=== PATIENT | female | born 1970 | race Caucasian/White ===

== ENCOUNTER 2018-03-15 20:17 | Emergency (ER) | payer OTHER ==
[2018-03-15] MEDS ORDERED: FLUCONAZOLE 150 MG TAB PO ONE (20:44)
--- NOTE | 2018-03-15 20:51 | EDPHY ---
H & P Stated Complaint: C/O FINGER INFECTION X 1 MONTH - NO TRAUMA HAS BEEN ON 3 DIFFERNTS MEDS Time Seen by Provider: 03/15/18 20:40 HPI/ROS: CHIEF COMPLAINT: Finger infection HISTORY OF PRESENT ILLNESS: The patient is a 47-year-old female who comes to the emergency department complaining of an infection to her right ring finger. It 1st began about 3 weeks ago. She went to the urgent care 3 weeks ago and was started on Keflex. She felt like her symptoms got worse and she developed a slight rash over her chest and other hand as well. She then went back after about 5 days of Keflex and they took cultures. She states that the bacterial cultures were negative as was the herpes virus culture. They started her however on clindamycin and valacyclovir which she has taken for the last 7 days. Her symptoms continued to worsen. She has crusty yellow lesions over her proximal phalanx that is weeping and a similar lesion with small vesicles over her distal phalanx. Normal range of motion. No fever. No pain with passive range of motion. She also developed some rash to her chest that she thought was an allergic reaction but to looks more consistent with tinea corporis. She is not immunocompromised in any way. Severity: Moderate Modifying factors: None REVIEW OF SYSTEMS: Constitutional: denies: chills, fever, recent illness, recent injury EENTM: denies: blurred vision, double vision, nose congestion Respiratory: denies: cough, shortness of breath Cardiac: denies: chest pain, irregular heart rate, lightheadedness, palpitations Gastrointestinal/Abdominal: denies: abdominal pain, diarrhea, nausea, vomiting, blood streaked stools Genitourinary: denies: dysuria, frequency, hematuria, pain Musculoskeletal: denies: joint pain, muscle pain Skin: See above Neurological: denies: headache, numbness, paresthesia, tingling, dizziness, weakness Hematologic/Lymphatic: denies: blood clots, easy bleeding, easy bruising Immunologic/allergic: denies: HIV/AIDS, transplant 10 systems reviewed and negative except as noted EXAM: GENERAL: Well-appearing, well-nourished and in no acute distress. HEAD: Atraumatic, normocephalic. EYES: Pupils equal round and reactive to light, extraocular movements intact, sclera anicteric, conjunctiva are normal. ENT: TMs normal, nares patent, oropharynx clear without exudates. Moist mucous membranes. NECK: Normal range of motion, supple without lymphadenopathy or JVD. LUNGS: Breath sounds clear to auscultation bilaterally and equal. No wheezes rales or rhonchi. HEART: Regular rate and rhythm without murmurs, rubs or gallops. ABDOMEN: Soft, nontender, normoactive bowel sounds. No guarding, no rebound. No masses appreciated. BACK: No CVA tenderness, no spinal tenderness, step-offs or deformities EXTREMITIES: Normal range of motion, no pitting or edema. No clubbing or cyanosis. NEUROLOGICAL: Cranial nerves II through XII grossly intact. Normal speech, normal gait. 5/5 strength, normal movement in all extremities, normal sensation , normal reflexes PSYCH: Normal mood, normal affect. SKIN: See above. Source: Patient Exam Limitations: No limitations - Personal History LMP (Females 10-55): 8-14 Days Ago Current Tetanus Diphtheria and Acellular Pertussis (TDAP): Yes - Medical/Surgical History Hx Asthma: Yes Hx Chronic Respiratory Disease: No Hx Diabetes: No Hx Cardiac Disease: No Hx Renal Disease: No Hx Cirrhosis: No Hx Alcoholism: No Hx HIV/AIDS: No Other PMH: DENIES - Family History Significant Family History: No pertinent family hx - Social History Smoking Status: Never smoked Alcohol Use: None Constitutional: Initial Vital Signs Temperature (C) 36.6 C 03/15/18 20:24 Heart Rate 85 03/15/18 20:24 Respiratory Rate 20 03/15/18 20:24 Blood Pressure 180/90 H 03/15/18 20:24 O2 Sat (%) 94 03/15/18 20:24 O2 Delivery Mode Room Air Allergies/Adverse Reactions: Sulfa (Sulfonamide Antibiotics) Allergy (Verified 03/15/18 20:23) Home Medications: Medication Instructions Recorded CEPHALEXIN 03/15/18 Clindamycin 03/15/18 Fluconazole [Diflucan (*)] 150 mg PO ONCE #1 tab 03/15/18 Ketoconazole 2% [Nizoral 2% Cream 30 gm TP BID #1 cream 03/15/18 (*)] Valacyclovir HCl 03/15/18 Medical Decision Making ED Course/Re-evaluation: The patient is a healthy 47-year-old female with a rash that is been treated unsuccessfully with Keflex, clindamycin and valacyclovir. She has had negative wound cultures and herpes culture. I suspect that she has a fungal rash. Her chest especially looks consistent with tinea corporis. I will start her on Diflucan and ketoconazole cream. I spoke with Dr. Ean Ghotra from [place]. He agrees with the plan and will try to get her into the clinic tomorrow with Dr. Stoll. Differential Diagnosis: Partial list of the Differential diagnosis considered include but were not limited to; tinea infection, cellulitis, herpetic dione and although unlikely based on the history and physical exam, I also considered allergic reaction, sepsis. I discussed these differential diagnoses and the plan with the patient as well as the usual and expected course. The patient understands that the diagnosis is provisional and that in medicine we are not always correct and that further workup is often warranted. Usual and customary warnings were given. All of the patient's questions were answered. The patient was instructed to return to the emergency department should the symptoms at all worsen or return, otherwise to followup with the physician as we discussed. - Data Points Medications Given: Discontinued Medications Fluconazole (Diflucan) 150 mg PO EDNOW ONE Stop: 03/15/18 20:45 Last Admin: 03/15/18 21:16 Dose: 150 mg Ketoconazole (Nizoral 2% Cream) 1 chelsie TP DAILY MADHURI Stop: 04/14/18 20:59 Last Admin: 03/15/18 21:16 Dose: Not Given Departure - Departure Disposition: Home, Routine, Self-Care Clinical Impression: Taenia infection Condition: Fair Instructions: Tinea Corporis (ED) Additional Instructions: When you call the Infect[facility] Disease [facility] tomorrow to make an appointment, make sure they are aware that we spoke with Dr. Ghotra from the ER in he said that he would try and get you an appointment for tomorrow with Dr. Stoll. Referrals: NONE *PRIMARY CARE P,. [Primary Care Provider] - As per Instructions Elizabeth Stoll MD [Medical Doctor] - 1 day without fail Prescriptions: Fluconazole [Diflucan (*)] 150 mg PO ONCE #1 tab Ketoconazole 2% [Nizoral 2% Cream (*)] 30 gm TP BID #1 cream
[2018-03-15] MEDS ORDERED: KETOCONAZOLE 2% 15 GM CREAM TP SCH (21:00)
[2018-03-15 21:15] VITALS: BP 162/88
== END 2018-03-15 21:14 | disposition home or self-care (01) ==
LOC: CED 20:17
DX: B68.9 Taeniasis, unspecified (principal); Z88.2 Allergy status to sulfonamides